=== PATIENT | female | born 2000 | race Caucasian/White ===

== ENCOUNTER 2019-09-18 21:30 | Emergency (ER) | payer BC, OTHER ==
[~2019-09-18] VITALS: Ht 180 cm; Wt 95.0 kg
--- OUTSIDE RECORDS SUMMARY | 2019-09-18 21:35 | XMS REPORT | Continuity of Care Document ---
Author Organization Unknown Address Unknown Phone Unavailable Allergies Active Description Code Type Severity Reaction Onset Reported/Identified Relationship to Patient Clinical Status Yes No Known Drug Allergies [id number] Drug Allergy Unknown N/A 03/28/2015 Medications There is no data. Problems Date Dx Coded Attending Type Code Diagnosis Diagnosed By 03/28/2015 ESTRELLA DASH, REVA Steel Ot S60.222A 03/28/2015 ESTRELLA DASH, REVA Steel Ot S60.512A 03/28/2015 ESTRELLA DASH, REVA Steel Ot V47.52XA 03/28/2015 REVA DE LA ROSA MD Ot Y92.410 03/28/2015 REVA DE LA ROSA MD Ot Y99.8 Procedures There is no data. Results There is no data. Encounters ACCT No. Visit Date/Time Discharge Status Pt. Type Provider Facility Loc./Unit Complaint [id number] 03/28/2015 19:29:00 016 22:28:00 DIS Emergency REVA DE LA ROSA MD Via [facility] ER [id number] 09/18/2019 21:31:[address] Emergency KIRTI CARMONA DO Via [facility] ER L ANKLE INJ
--- NOTE | 2019-09-18 21:59 | ED Lower Extremity ---
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 LMP--BEGAN 4 DAYS AGO, ENDED TODAY. NO CONTROL PCP: DR. JEWELL Allergies and Home Medications Allergies Coded Allergies: No Known Drug Allergies (Unverified , 03/28/15) Patient Home Medication List Home Medication List Reviewed: Yes Review of Systems Constitutional: no symptoms reported LMP: Sep 14, 2019 Control/STD Prophylaxis: None Musculoskeletal: see HPI Skin: no symptoms reported Psychiatric/Neurological: No Symptoms Reported Past Riexfuo-Cbwnzf-Jwlutk Hx Past Med/Social Hx: Reviewed and Corrections made Patient Social History Alcohol Use: Denies Use Recreational Drug Use: No Smoking Status: Never a Smoker Recent Foreign Travel: No Contact w/Someone Who Travel: No Immunizations Up To Date Tetanus Booster (TDap): Less than 5yrs Past Medical History Surgeries: No Respiratory: No Cardiac: No Neurological: No : No Reproductive Disorders: No Genitourinary: No Gastrointestinal: No Musculoskeletal: No Endocrine: No HEENT: No Cancer: No Psychosocial: No Integumentary: No Blood Disorders: No Adverse Reaction/Blood Tranf: No Family Medical History No Pertinent Family Hx Physical Exam Vital Signs Capillary Refill : Height, Weight, BMI Height: 5'10" Weight: 140lbs. oz. 63.962866bw; BMI Method: General Appearance: WD/WN, no apparent distress Hips: bilateral hip normal inspection Legs: bilateral leg normal inspection Knees: bilateral knee normal inspection Ankles: left ankle bone tenderness, left ankle limited range of motion, left a nkle pain, left ankle soft tissue tenderness, left ankle swelling, left ankle other (LATERAL MALLEOLUS WITH MILD SWELLING, MODERATE TENDERNESS. LIMITED ROM OF ANKLE. DISTAL MOTOR/SENSORY/VASCULAR INTACT. 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, no motor/sensory deficits, alert, normal mood/affect, oriented x 3 Skin: normal color, warm/dry; No ecchymosis Procedures/Interventions Splinting and Joint Reduction : Dean wrap: Yes Immobilizers: Step Light Walker s/m/lg Progress/Results/Core Measures Results/Orders My Orders Orders - KIRTI CARMONA DO Ankle, Left, 3 Views (09/18/19 21:54) Dean Bandage (09/18/19 22:20) Steplite (09/18/19 22:20) Rx-Naproxen (Rx-Naprosyn) (09/18/19 22:30) Diagnostic Imaging Comments XRAYS LEFT ANKLE--NO ACUTE BONY INJURY, PENDING RADIOLOGIST REVIEW Reviewed: Reviewed by Me Departure Impression Primary Impression: Left ankle sprain Disposition: HOME, SELF-CARE Condition: Stable Departure-Patient Inst. Referrals: ADAM JEWELL MD (PCP/Family) Primary Care Physician Patient Instructions: Ankle Sprain (DC), Walking Boot Add. Discharge Instructions: ICE TO AREA AT 20 MINUTE INTERVALS ELEVATE FOOT MUCH POSSIBLE DEAN WRAP AND BOOT AT ALL TIMES FOLLOW UP WITH YOUR DR IN 1 WEEK IF NO BETTER Scripts Naproxen (Naproxen) 500 Mg Tablet. 500 MG PO BID, #20 TAB Prov: KIRTI CARMONA DO 09/18/19 Work/School Note: Work Release Form Date Seen in the Emergency Department: Sep 18, 2019 Return to Work: Sep 19, 2019 Other Restrictions Listed Below: LIMITED STANDING AND WALKING X 1 WEEK KIRTI CARMONA DO Sep 18, 2019 21:59
[2019-09-18] MEDS ORDERED: NAPR500T8 PO (22:27)
[2019-09-18] MEDS ORDERED: NAPROXEN 250 MG (NAPROSYN) TABLET PO ONE (22:30)
[2019-09-18] MEDS ORDERED: RX-NAPROXEN (NAPROSYN) 250 MG TAB PPK#4 PO ONE (22:30)
[2019-09-18 22:51] VITALS: BP 110/82
--- NOTE | 2019-09-19 05:22 | Diagnostic Imaging Report ---
CLINICAL HISTORY: Left ankle pain and swelling. COMPARISON: None. TECHNIQUE: 3 views of the left ankle. FINDINGS: There is no acute fracture or dislocation of the left ankle. Alignment is anatomic. The tibial plafond and talar dome are intact. No osteochondral defects are seen. No widening of the medial or lateral clear spaces. Soft tissue edema is seen along the lateral aspect of the left ankle. Possible avulsion fracture seen involving the base of the left 5th metatarsal. IMPRESSION: 1. Possible avulsion fracture versus accessory ossicle involving the base of the left 5th metatarsal. Recommend dedicated left foot radiographs to further evaluate. 2. No acute fracture or dislocation in the left ankle. 3. Soft tissue edema along the lateral aspect of the left ankle. Dictated by: Dictated on workstation # [id number]
== END 2019-09-18 22:52 | disposition home or self-care (01) ==
LOC: EDUNIT# 21:30 → ER 21:31
DX: S93.402A Sprain of unspecified ligament of left ankle, initial encounter (principal); X50.1XXA Overexertion from prolonged static or awkward postures, initial encounter
CPT/HCPCS: 73610

== ENCOUNTER → 2019-09-20 | Outpatient (CLI) | payer BC ==
[~2019-09-20] MED LIST: NAPR500T8 PO
--- NOTE | 2019-09-20 16:31 | Diagnostic Imaging Report ---
INDICATION: Injury to the left foot with pain at the base of the 5th metatarsal. TIME OF EXAM: 2:41 PM. FINDINGS: Three views of the left foot were obtained. There is an acute appearing fracture at the base of the 5th metatarsal. No significant displacement is seen. The remaining metatarsals are intact. The phalanges are intact. The midfoot and hindfoot are unremarkable. IMPRESSION: Acute fracture at the base of the 5th metatarsal. Dictated by: Dictated on workstation # [id number]
== END ==
LOC: RAD 14:12
PROVIDERS: ATTEND Family Medicine
DX: S92.355A Nondisplaced fracture of fifth metatarsal bone, left foot, initial encounter for closed fracture (principal); X58.XXXA Exposure to other specified factors, initial encounter
CPT/HCPCS: 73630